=== PATIENT | male | born 1990 | race Caucasian/White ===

== ENCOUNTER 2020-05-16 13:41 | Emergency (ER) | payer BC ==
[~2020-05-16] VITALS: Ht 182.9 cm; Wt 77.1 kg
[2020-05-16 13:52] VITALS: Ht 182.9 cm; Wt 77.1 kg
[2020-05-16 15:05] LABS: BASOPHIL % 0.3 % (0.2-1.5); PLATELET COUNT 191 x10^3mcL (152-348); RED CELL DISTRIBUTION WIDTH 12.1 % (12.1-16.2)
[2020-05-16 15:13] LABS: UA SPECIFIC GRAVITY 1.025 (1.005-1.035); microscopic required? YES; urine erythrocyte 3+ (NEGATIVE)
[2020-05-16 15:33] LABS: CALCIUM 8.7 mg/dL (8.5-10.1); CARBON DIOXIDE 29.7 mmol/L (21-32); CHLORIDE SERUM 103 mmol/L (98-107); CREATININE SERUM 1.1 mg/dL (0.7-1.3); GFR1 > 60 mL/min; GLUCOSE SERUM 135 mg/dL (74-106); POTASSIUM SERUM 3.8 mmol/L (3.5-5.1); SODIUM SERUM 140 mmol/L (136-145)
[2020-05-16 15:36] LABS: ALKALINE PHOSPHATASE 93 U/L (46-116); ALT/SGPT 36 U/L (16-63); AST/SGOT 18 U/L (15-37); BILIRUBIN TOTAL 0.6 mg/dL (0.20-1.00); TOTAL PROTEIN, SERUM 6.6 g/dL (6.4-8.2)
[2020-05-16 16:19] VITALS: BP 126/81
== END 2020-05-16 16:19 | disposition home or self-care (01) ==
LOC: ED 13:41
PROVIDERS: Emergency Medicine
DX: E86.0 Dehydration (principal); F15.10 Other stimulant abuse, uncomplicated; R07.89 Other chest pain; F17.210 Nicotine dependence, cigarettes, uncomplicated
CPT/HCPCS: J7030